=== PATIENT | male | born 1955 | race Caucasian/White ===

== ENCOUNTER 2021-03-27 14:58 | Outpatient (CLI) | payer BC | END 2021-03-27 14:59 | disposition home or self-care (01) | LOC: CSHMRI 14:58 | PROVIDERS: ATTEND Orthopaedic Surgery | DX: M06.9 Rheumatoid arthritis, unspecified (principal); M66.321 Spontaneous rupture of flexor tendons, right upper arm; M75.81 Other shoulder lesions, right shoulder; M62.89 Other specified disorders of muscle; M25.411 Effusion, right shoulder; S43.431A Superior glenoid labrum lesion of right shoulder, initial encounter ==